=== PATIENT | female | born 1940 | race Asian ===

== ENCOUNTER 2017-05-15 09:24 | Emergency (ER) | payer MEDICAID ==
--- NOTE | 2017-05-15 12:09 | XRAY Preliminary Report ---
Exam: XR HIPS 2V BILAT IMPRESSION: Normal bilateral hip radiography. [facility] SITE ID: [id number]
--- NOTE | 2017-05-15 12:12 | XRAY Report ---
EXAM: BILATERAL HIP RADIOGRAPHY EXAM DATE: 05/15/2017 11:56 AM. CLINICAL HISTORY: Worse than expected pain. Recent acute onset of pain x1 week. Left worse than right . History of prior fall 2 years ago. COMPARISON: None. TECHNIQUE: 2 views each, including AP pelvis (series 3 views total). FINDINGS: Bones: Normal. No fractures or bone lesion. Right Hip: Normal. No dislocation. The hip joint space is preserved. Left Hip: Normal. No dislocation. The hip joint space is preserved. Soft Tissues: Normal. No soft tissue swelling. IMPRESSION: Normal bilateral hip radiography. [facility] Referring Provider Line: [phone] SITE ID: [id number]
[2017-05-15] MEDS ORDERED: HYDROcod/ACETAM 5/325 MG TABLET PO STA (12:19)
--- NOTE | 2017-05-15 12:21 | ED Physician Documentation ---
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 Points at the greater trochanter. Sometimes with nausea, but no vomiting or fevers. No changes with BMs and no urinary complaints except that hurts to sit on the toilet. Never had it before. Has H/O BRCA s/p Rad/chemo in 2014 without recurrence.) Review of Systems Constitutional: reports: Reviewed and negative. denies: Fever, Chills Nose: denies: Rhinorrhea / runny nose, Congestion Cardiac: reports: Reviewed and negative Respiratory: reports: Reviewed and negative GI: denies: Abdominal Pain, Nausea, Vomiting : denies: Dysuria, Frequency Skin: denies: Rash, Lesions PD PAST MEDICAL HISTORY - Past Medical History Past Medical History: Yes Other Past Medical History: Patient has history of breast cancer in 2013 and had left breast mastectomy. Follows up with Dr. Vazquez in [place] and had an appt last week. Patient had radiation and chemo tx. 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 - Present Medications Home Medications: Ambulatory Orders Medication Instructions Recorded Confirmed HYDROcod/ACETAM 5/325 [[place] 5/325] 1 - 2 ea PO Q6H PRN #15 tablet 05/15/17 Ibuprofen 200 mg PO PRN 05/15/17 Meloxicam [Mobic] 7.5 mg PO BIDWM PRN #15 tablet 05/15/17 - Allergies Allergies/Adverse Reactions: Allergies Allergy/AdvReac Type Severity Reaction Status Date / Time No Known Drug Allergies Allergy Verified 05/15/17 09:44 - Social History Does the pt smoke?: No Smoking Status: Never smoker Does the pt drink ETOH?: No PD ED PE NORMAL - Vitals Vital signs reviewed: Yes - General General: Alert and oriented X 3, No acute distress - HEENT HEENT: PERRL, EOMI - Neck Neck: Supple, no meningeal sign, No bony TTP - Cardiac Cardiac: RRR, No murmur - Respiratory Respiratory: No respiratory distress, Clear bilaterally - Abdomen Abdomen: Normal bowel sounds, Soft, Non tender - Back Back: No CVA TTP, No spinal TTP - Derm Derm: Normal color, Warm and dry - Extremities Extremities: Other (Mild TTP over L greater trochanter without skin changes. No pain with int/ext rotation. No pelvic or abd pain.) - Neuro Neuro: Alert and oriented X 3, Normal speech - Psych Psych: Normal mood, Normal affect Results - Vitals Vitals: Vital Signs - 24 hr 05/15/17 09:45 Temperature 36.5 C Heart Rate 65 Respiratory 16 Rate Blood Pressure 132/78 H O2 Saturation 97 Oxygen O2 Source Room air - Labs Labs: Laboratory Tests 05/15/17 05/15/17 05/15/17 12:30 12:45 12:45 WBC 3.4 L RBC 4.32 Hgb 12.4 Hct 37.8 MCV 87.5 MCH 28.7 MCHC 32.8 RDW 12.3 Plt Count 165 MPV 7.4 L Neut # 1.5 Lymph # 1.5 [facility] # 0.3 Eos # 0.1 Baso # 0.0 Absolute Nucleated RBC 0.00 Nucleated RBC % 0.0 Sodium 139 Potassium 3.8 Chloride 106 Carbon Dioxide 25 Anion Gap 8.0 BUN 12 Creatinine 0.6 Estimated GFR (MDRD) 97 Glucose 125 H Calcium 8.9 Total Bilirubin 0.7 AST 36 ALT 29 Alkaline Phosphatase 48 Total Protein 7.2 Albumin 4.0 Globulin 3.2 Albumin/Globulin Ratio 1.3 Lipase 22 Urine Color YELLOW Urine Clarity CLEAR Urine pH 7.0 Ur Specific [place] 1.010 Urine Protein NEGATIVE Urine Glucose (UA) NEGATIVE Urine Ketones NEGATIVE Urine Occult Blood TRACE-INTA Urine Nitrite NEGATIVE Urine Bilirubin NEGATIVE Urine Urobilinogen 0.2 (NORMAL) Ur Leukocyte Esterase NEGATIVE Ur Microscopic Review NOT INDICATED Urine Culture Comments NOT INDICATED - Rads (name of study) B hip XR Radiology: EMP read contemporaneously (normal) PD MEDICAL DECISION MAKING - ED course ED course: 76-year-old woman with what seems like trochanteric bursitis of her hip. She does not seem to have any pathology of the hip joint itself on examination and her x-rays are negative. Lab work was done given advanced age and was negative except for modest hyperglycemia and leukopenia, for which follow-up was advised. Follow-up conversation with the patient and her son was had again via the research development manager, this time [id number]. All questions were answered. They understand the need to follow-up with the family doctor in [place] for evaluation and likely physical therapy, also repeat labs to recheck the leukopenia and hyperglycemia. Departure - Departure Disposition: 01 Home, Self Care Clinical Impression: Trochanteric bursitis of left hip, Hyperglycemia Leukopenia Qualifiers: Leukopenia type: unspecified Qualified Code(s): D72.819 - Decreased white blood cell count, unspecified Condition: Good Record reviewed to determine appropriate education?: Yes Instructions: ED Bursitis Follow-Up: [facility] [Provider Group] Prescriptions: HYDROcod/ACETAM 5/325 [[place] 5/325] 1 - 2 ea PO Q6H PRN #15 tablet PRN Reason: Pain Meloxicam [Mobic] 7.5 mg PO BIDWM PRN #15 tablet PRN Reason: Pain Print Language: Chinese Comments: Follow-up with the doctor listed on this form and [place] for reevaluation and likely referral for physical therapy. Return if worse or for new symptoms. He will need to have the low white blood cell count and high blood sugar rechecked in a month or so. Your blood pressure was elevated today on check into the emergency department. This does not mean that you have hypertension, it is a common phenomenon to come to the emergency department and have elevated blood pressure. I recommend that you see your primary care physician within the week to have it rechecked when you are feeling better. Do not drink or drive while taking narcotic pain medication. Note that many narcotic pain relievers also contain Tylenol/acetaminophen. Please ensure that your total dose of acetaminophen from all sources does not exceed 3 g (3000 mg) per day. You may get constipated while on this medication. Take a stool softener such as Colace twice a day while you are on it. Also add an [id number] laxative such as senna or MiraLAX on any day that you do not have a bowel movement. If you received a narcotic pain medication or sedative while in the emergency department, do not drive for the next 24 hours.
[2017-05-15] MEDS ORDERED: HYDROcod/ACETAM 5/325 MG TABLET ONE (12:29)
[2017-05-15 12:42] LABS: BILIRUBIN,URINE NEGATIVE (NEGATIVE)
[2017-05-15 12:50] LABS: UA CHARGE (STRIP ONLY) YES; UR CULTURE IF IND NOT INDICATED
[2017-05-15 12:53] LABS: BASOPHILS % (AUTO) 0.8 %; EOSINOPHILS # (AUTO) 0.1 10^3/uL (0.0-0.7); EOSINOPHILS % (AUTO) 2.5 %; HCT - HEMATOCRIT 37.8 % (37.0-47.0); HGB - HEMOGLOBIN 12.4 g/dL (12.0-16.0); LYMPHOCYTES # (AUTO) 1.5 10^3/uL (1.5-3.5); LYMPHOCYTES % (AUTO) 42.9 %; MEAN CORPUSCULAR HEMOGLOBIN 28.7 pg (27.0-31.0); MEAN CORPUSCULAR HGB CONC 32.8 g/dL (32.0-36.0); MEAN CORPUSCULAR VOLUME 87.5 fL (81.0-99.0); MEAN PLATELET VOLUME 7.4 fL (7.9-10.8); MONOCYTES # (AUTO) 0.3 10^3/uL (0.0-1.0); NEUTROPHILS # (AUTO) 1.5 10^3/uL (1.5-6.6); NEUTROPHILS % (AUTO) 43.8 %; RED BLOOD COUNT 4.32 10^6/uL (4.20-5.40); RED CELL DISTRIBUTION WIDTH 12.3 % (12.0-15.0); UNCORRECTED WHITE BLOOD COUNT 3.4 x10^3/uL; WHITE BLOOD COUNT 3.4 x10^3/uL (4.8-10.8)
[2017-05-15 13:06] LABS: ALBUMIN/GLOBULIN RATIO 1.3 (1.0-2.2); BILIRUBIN,TOTAL 0.7 mg/dL (0.2-1.0); CALCIUM 8.9 mg/dL (8.5-10.3); CREATININE 0.6 mg/dL (0.4-1.0); POTASSIUM 3.8 mmol/L (3.5-5.0); TOTAL PROTEIN 7.2 g/dL (6.7-8.2)
[2017-05-15 13:32] VITALS: BP 130/70
== END 2017-05-15 13:58 | disposition home or self-care (01) ==
LOC: ED 09:24
DX: M70.62 Trochanteric bursitis, left hip (principal); R73.9 Hyperglycemia, unspecified; D72.819 Decreased white blood cell count, unspecified; R03.0 Elevated blood-pressure reading, without diagnosis of hypertension; Z85.3 Personal history of malignant neoplasm of breast; Z90.12 Acquired absence of left breast and nipple
CPT/HCPCS: 36415; 73521; 80053; 81003; 83690; 85025; 99283; A9270; 81001; 87086